=== PATIENT | female | born 2000 | race Caucasian/White ===

== ENCOUNTER 2021-09-17 03:55 | Emergency (ER) | payer OTHER ==
[2021-09-17] MEDS ORDERED: Ondansetron ODT 4 MG TAB ONE (04:58)
== END 2021-09-17 05:34 | disposition home or self-care (01) ==
LOC: CSHERS 03:55
DX: S06.0X0A Concussion without loss of consciousness, initial encounter (principal); W00.9XXA Unspecified fall due to ice and snow, initial encounter; Y93.21 Activity, ice skating
CPT/HCPCS: 70450; 72125; Q0162